=== PATIENT | female | born 1990 | race Caucasian/White ===

== ENCOUNTER → 2016-08-19 | Outpatient (CLI) | payer MEDICAID ==
[~2016-08-19] MED LIST: CALNTAB; GLYB2.5T3 PO; IBUP-232 PO; subutex
--- NOTE | 2016-09-16 17:30 | MH ---
cc: CAN BIRD MD DATE OF ADMISSION: 08/19/2016 1989 REASON FOR CONSULTATION For evaluation at [facility] is 34-6/7 week intrauterine with insulin dependent gestational diabetes, opioid maintenance, Alfred I Psychiatric diagnosis, history of MRSA and today she has a biophysical profile of 6/10. Her sugars have been variable, but overall she has been feeling well. Her Subutex is 2 mg b.i.d. She is on glyburide to 2.5 mg b.i.d. She takes MiraLax p.r.n. She is 3, para 0 with two miscarriages. She has historically been on Cymbalta, trazodone, Lamictal, gabapentin, but all of these have been discontinued during the with good results. She has only taken Zoloft 50 mg and the Subutex 2 mg b.i.d. and occasional Benadryl for insomnia. PAST MEDICAL HISTORY Other than her substance use and psychiatric conditions, she has no chronic or systemic illnesses. SOCIAL HISTORY She is currently smoking tobacco but tried to quit. She is not drinking or using illicit drugs. PAST SURGICAL HISTORY She had a rhinoplasty and she had an abscess on her stomach drained in 2009. FAMILY HISTORY Noncontributory REVIEW OF SYSTEMS Reveals a lack of contractions, leaking, bleeding and she has good movement. Her blood type is B+ hemoglobin is 13.9. Her Pap smear was normal. She was treated for trach. She is immune to chickenpox but not [place] measles. Cultures were all negative. TSH is normal. She has a very low vitamin D. Her 1-hour sugar test was 162 and her 3-hour sugar test was 79, 187, 213 and 160. She was started on glyburide and started on Accu-Cheks just this week. Her hemoglobin was 12. Today the biophysical profile showed ANT of 11.7 and Dopplers at the upper level of normal. is vertex. The placenta is anterior. She has good movement, tone and fluids volume and no breathing motions and her NST was flat. She is therefore going to the hospital for further evaluation and possible delivery. PHYSICAL EXAMINATION GENERAL: She is otherwise a well-developed, well-nourished female. VITAL SIGNS: Weight is 148, blood pressure is 100/62. Urine shows trace protein. LUNGS: Clear to auscultation. HEART: Rate and rhythm are regular. PELVIC: Fundus is 35 cm, cervix was not checked. She has no CVA tenderness. EXTREMITIES: No significant pedal edema OR hyperreflexia. She denies nausea, vomiting, headache blurred vision or right upper quadrant tenderness. IMPRESSION Class A2 diabetic with poorly controlled sugars, opioid initially with Subutex, history of depression, major depressive disorder, possible bipolar disorder, on no medications at this time. PLAN Evaluate more thoroughly in OB ED and determine if continued observation or delivery as indicated. MD MARIAH Emery/SA /4:58 PM /5:07 PM
== END ==
LOC: CDED 14:39
PROVIDERS: ATTEND Obstetrics & Gynecology
DX: O24.419 Gestational diabetes mellitus in pregnancy, unspecified control (principal)
CPT/HCPCS: 97802

== ENCOUNTER 2016-09-16 19:26 | Observation (INO) | payer MEDICAID ==
[~2016-09-16] VITALS: Ht 160 cm; Wt 67.1 kg
[2016-09-16] MEDS ORDERED: SODIUM CHLORIDE 0.9% FLUSH 5 ML FLUSH IVF PRN (20:00)
[2016-09-16] MEDS ORDERED: ZOLPIDEM TARTRATE 5 MG TAB PO PRN (20:00)
[2016-09-16] MEDS ORDERED: ONDANSETRON ODT 4 MG TAB PO PRN (20:00)
[2016-09-16] MEDS ORDERED: ACETAMINOPHEN 325 MG TAB PO PRN (20:00)
--- NOTE | 2016-09-16 20:13 | PD.OB.ANTE ---
Subjective Interval History arrived at hospital from office. was unable to fill her buprenorphine script tonight because it is one day early while BPP was 6/10 in office, current strip is reactive with good BTBV starting 2200 carb consistent diet will keep 24 hours and obtain diabetic counseling, prolonged strip and 24 hour urine. Objective Physical Exam GENERAL: Well-nourished, well-developed patient. CARDIOVASCULAR: Regular rate and rhythm without murmurs, gallops, or rubs. RESPIRATORY: Breath sounds equal bilaterally. No accessory muscle use. fundus consistent with dates EXTREMITIES: No cyanosis or edema, non-tender, without signs of DVT. Elli Hoffman MD Sep 16, 2016 20:13
[2016-09-16] MEDS: SODIUM CHLORIDE 0.9% FLUSH 5 ML FLUSH IVF SCH (21:00)
--- NOTE | 2016-09-16 21:52 | PD.OB.ANTE ---
Subjective Interval History arcenio regularly although not feeling them cervix --1 posterior Objective Physical Exam GENERAL: Well-nourished, well-developed patient. CARDIOVASCULAR: Regular rate and rhythm without murmurs, gallops, or rubs. RESPIRATORY: Breath sounds equal bilaterally. No accessory muscle use. ABDOMEN/GI: Abdomen soft, non-tender. strip reactive regular UCs cervical change EXTREMITIES: No cyanosis or edema, non-tender, without signs of DVT. Assessment and Plan Assessment and Plan begin IV hydration prophylactic antibiotic hold steroids due to uncontrolled diabetes Elli Hoffman MD Sep 16, 2016 21:52
[2016-09-16 22:03] LABS: AUTOMATED NEUTROPHIL # 7.2 TH/MM3 (1.8-7.7); BASOPHIL % 0.3 % (0.0-2.0); EOSINOPHIL # 0.1 TH/MM3 (0-0.4); EOSINOPHIL % 1.2 % (0.0-4.0); HEMATOCRIT 36.8 % (35.0-46.0); HEMO FLAGS DIFF FINAL; LYMPH % 15.8 % (9.0-44.0); LYMPHOCYTE # 1.4 TH/MM3 (1.0-4.8); MEAN CELL VOLUME 84.7 FL (80.0-100.0); MEAN CORPUSCULAR HEMOGLOBIN 27.8 PG (27.0-34.0); MEAN CORPUSCULAR HGB CONC 32.9 % (32.0-36.0); MONO % 3.5 % (0.0-8.0); NEUT % 79.2 % (16.0-70.0); PLATELET COUNT 313 TH/MM3 (150-450); RED BLOOD COUNT 4.35 MIL/MM3 (4.00-5.30)
[2016-09-16 22:09] LABS: AMPHETAMINE, URINE NEG (NEG); BARBITURATES, URINE NEG (NEG); COCAINE, URINE NEG (NEG)
[2016-09-16 22:14] LABS: BACTERIA, URINE OCC /hpf; BLOOD, URINE NEG (NEG); COMMENT (UR) CULTURE INDICATED; CULTURE IF INDICATED CULTURE INDICATED; GLUCOSE,URINE NEG (NEG); KETONE, URINE 10 mg/dL (NEG); MUCUS URINE FEW /lpf (OCC); NITRITE,URINE NEG (NEG); PH, URINE 6.5 (5.0-8.5); SQUAMOUS EPITHELIAL CELL URINE 44 /hpf (0-5); URINE COLOR YELLOW (YELLW/STRAW)
[2016-09-16 22:30] LABS: HEMOGLOBIN A1a 1.1 %; HEMOGLOBIN A1b 1.4 %; HEMOGLOBIN Ao 86.4 %; HEMOGLOBIN LA1C 1.8 %; HEMOGLOBIN P3 3.4 %
[2016-09-16] MEDS: LACTATED RINGER'S 1000 ML INJ 1,000 ML IV SCH (22:30)
[2016-09-16 22:34] LABS: ALKALINE PHOSPHATASE 144 U/L (45-117); ALT (GPT) 63 U/L (10-53); ANION GAP 9 MEQ/L (5-15); AST (GOT) 43 U/L (15-37); BICARBONATE 25.9 MEQ/L (21.0-32.0); BLOOD UREA NITROGEN 7 MG/DL (7-18); CHLORIDE 103 MEQ/L (98-107); GLOMERULAR FILTRATION RATE 85 ML/MIN (>89); INDIRECT BILIRUBIN 0.2 MG/DL (0.0-0.8); POTASSIUM 3.3 MEQ/L (3.5-5.1); SODIUM (NA) 138 MEQ/L (136-145); TOTAL BILIRUBIN ADULT 0.4 MG/DL (0.2-1.0); URIC ACID 3.5 MG/DL (2.6-6.0)
[2016-09-17] MEDS: LACTATED RINGER'S 1000 ML INJ 1,000 ML IV SCH (01:00)
[2016-09-17] MEDS: NIFEdipine 10 MG CAP PO SCH ×2 (05:59)
[2016-09-17] MEDS ORDERED: CALNTAB (06:15)
[2016-09-17] MEDS ORDERED: subutex (06:15)
[2016-09-17 07:36] VITALS: RESP 16; TEMP 97.9
[2016-09-17 07:37] VITALS: BP 106/67; PULSE 66
[2016-09-17] MEDS ORDERED: glyBURIDE 2.5 MG TAB PO SCH (08:00)
[2016-09-17] MEDS: SODIUM CHLORIDE 0.9% FLUSH 5 ML FLUSH IVF SCH (08:35)
[2016-09-17] MEDS ORDERED: DOCUSATE SODIUM 100 MG CAP PO SCH (09:00)
--- NOTE | 2016-09-17 09:35 | PD.OB.ANTE ---
Subjective Interval History Doing well, no c/o, FBS 95 ,tolerating oral glybruride Objective Vital Signs Vital Signs Date Time Temp Pulse Resp B/P Pulse Ox O2 Delivery O2 Flow Rate FiO2 09/17/16 07:37 66 106/67 09/17/16 07:36 97.9 16 Lab & Micro Results Test 09/16/16 09/16/16 09/16/16 20:30 21:10 21:38 Urine Color YELLOW Urine Turbidity CLOUDY Urine pH 6.5 Urine Specific [place] 1.023 Urine Protein 30 mg/dL Urine Glucose (UA) NEG mg/dL Urine Ketones 10 mg/dL Urine Occult Blood NEG Urine Nitrite NEG Urine Bilirubin NEG Urine Urobilinogen 2.0 MG/DL Urine Leukocyte Esterase LARGE Urine RBC 5 /hpf Urine WBC 25 /hpf Urine Squamous Epithelial 44 /hpf Cells Urine Bacteria OCC /hpf Urine Mucus FEW /lpf Microscopic Urinalysis Comment CULTURE INDICATED Urine Opiates Screen NEG Urine Barbiturates Screen NEG Urine Amphetamines Screen NEG Urine Benzodiazepines Screen NEG Urine Cocaine Screen NEG Urine Cannabinoids Screen NEG White Blood Count 9.0 TH/MM3 Red Blood Count 4.35 MIL/MM3 Hemoglobin 12.1 GM/DL Hematocrit 36.8 % Mean Corpuscular Volume 84.7 FL Mean Corpuscular Hemoglobin 27.8 PG Mean Corpuscular Hemoglobin 32.9 % Concent Red Cell Distribution Width 14.0 % Platelet Count 313 TH/MM3 Mean Platelet Volume 8.0 FL Neutrophils (%) (Auto) 79.2 % Lymphocytes (%) (Auto) 15.8 % Monocytes (%) (Auto) 3.5 % Eosinophils (%) (Auto) 1.2 % Basophils (%) (Auto) 0.3 % Neutrophils # (Auto) 7.2 TH/MM3 Lymphocytes # (Auto) 1.4 TH/MM3 Monocytes # (Auto) 0.3 TH/MM3 Eosinophils # (Auto) 0.1 TH/MM3 Basophils # (Auto) 0.0 TH/MM3 CBC Comment DIFF FINAL Differential Comment Sodium Level 138 MEQ/L Potassium Level 3.3 MEQ/L Chloride Level 103 MEQ/L Carbon Dioxide Level 25.9 MEQ/L Anion Gap 9 MEQ/L Blood Urea Nitrogen 7 MG/DL Creatinine 0.81 MG/DL Estimat Glomerular Filtration 85 ML/MIN Rate Random Glucose 111 MG/DL Hemoglobin A1c 5.4 % Uric Acid 3.5 MG/DL Calcium Level 8.8 MG/DL Total Bilirubin 0.4 MG/DL Direct Bilirubin 0.2 MG/DL Indirect Bilirubin 0.2 MG/DL Aspartate Amino Transf 43 U/L (AST/SGOT) Alanine Aminotransferase 63 U/L (ALT/SGPT) Alkaline Phosphatase 144 U/L Total Protein 6.5 GM/DL Albumin 2.3 GM/DL Date/Time Procedure Status Source Growth 09/16/16 20:30 Urine Culture Received Urine Clean Catch Pending Physical Exam GENERAL: Well-nourished, well-developed patient. CARDIOVASCULAR: Regular rate and rhythm without murmurs, gallops, or rubs. RESPIRATORY: Breath sounds equal bilaterally. No accessory muscle use. ABDOMEN/GI: Abdomen soft, non-tender. Fundus: [-] GENITOURINARY: External Genitalia: intact and normal in appearance Cervix: [-] Dilatation: [-] Effacement: [-] Station: [-] Presentation: [-] Membranes: [-] Uterine Contractions: [-] FHT's: Category: [-] Baseline: [-] Reactive: [-] Variability: [-] Decels: [-] EXTREMITIES: No cyanosis or edema, non-tender, without signs of DVT. Assessment and Plan Assessment and Plan HD#1; 34 5/7 week, GDM, new glyburide start, STABLE ,plan discharge. PTL precautions, rto next thu. for BPP Bruno Shook MD Sep 17, 2016 09:35
[2016-09-17] MEDS ORDERED: GLYB2.5T3 PO (09:37)
--- NOTE | 2016-09-17 09:38 | HHI.DS ---
Admission Date Sep 16, 2016 at 19:26 Discharge Date: Sep 17, 2016 Admitting Diagnosis Diagnosis: (1) Gestational diabetes (2) 35 weeks gestation of (3) Buprenorphine maintenance treatment affecting in third trimester (4) heart rate non-reassuring affecting management of mother Pt Condition on Discharge: Good Discharge Disposition: Discharge Home Discharge Instructions Diet Instructions: Calorie Counting Diet Activities You Can Perform: Pelvic Rest Activities to Avoid: Strenuous Activity Bruno Shook MD Sep 17, 2016 09:38
[2016-09-17 16:16] LABS: MRSA PCR NEGATIVE (NEGATIVE); STAPH AUREUS PCR NEGATIVE (NEGATIVE)
[2016-09-25 10:04] LABS: BATH SALTS (MDPV) UR NEG (NEG); ECSTASY (MDMA) UR NEG (NEG); HEROIN (6-ACETYLMORPHINE) UR NEG (NEG); K2 SPICE UR NEG (NEG); OBMETHADONE UR NEG (NEG); OXYCODONE (PERCODAN) NEG (NEG); PHENCYCLIDINE URINE NEG (NEG)
== END 2016-09-17 10:10 | disposition home or self-care (01) ==
LOC: H2EA 19:26
PROVIDERS: ADMIT Obstetrics & Gynecology; ATTEND Obstetrics & Gynecology
DX: O24.419 Gestational diabetes mellitus in pregnancy, unspecified control (principal); Z3A.35 35 weeks gestation of pregnancy
CPT/HCPCS: 80048; 80076; 80307; 81001; 82948; 83036; 84550; 85025; 87086; 87640; 87641; G0378; G0481; J0690; J7120

== ENCOUNTER 2016-10-05 04:17 | Inpatient (IN) | payer MEDICAID ==
[2016-10-05] VITALS (88 sets, daily range): BP systolic 81–134; BP diastolic 45–93; PULSE 59–104; RESP 16–18; TEMP 97.9–98.5
[~2016-10-05 04:17] MED LIST changes: -IBUP-232 PO
--- NOTE | 2016-10-05 05:52 | PD ---
HPI Chief Complaint Contraction pain Date Seen: Oct 05, 2016 Travel History International Travel<30 Days: No Contact w/Intl Traveler<30Days: No Known Affected Area: No History of Present Illness HPI This patient is a 25-year-old white female A2 presents complaining of contraction pain. Denies bleeding or rupture the membranes baby is active. She began arcenio about 8 PM on 10/04 and contractions are more regular and more painful since and that was proximally 10 hours ago. She is patient of Dr. Hoffman'aries who is on Subutex her chronic history of opioid abuse. Her baby's heart rate tracing is reactive and she is arcenio every 2-3 minutes Para: 0 : 3 History Past Medical History Narrative Medical Gestational diabetes mellitus on glyburide Obstetric History Obstetric History 2 ABs Social History Alcohol Use: Yes Tobacco Use: Yes Substance Abuse: Yes Allergies-Medications (Allergen,Severity, Reaction): Coded Allergies: No Known Allergies (Unverified , 09/17/16) Home Meds Active Scripts Glyburide 2.5 Mg Tab2.5 Mg PO BID@ #30 TAB Ref 2 Prov:Bruno Shook MD 09/17/16 Reported Medications [subutex] No Conflict Check2 Mg BID 09/17/16 Vitamin (Calna)1 Tab Tab Daily 09/17/16 Review of Systems General / Constitutional: No: Fever, Weight Gain, Chills, Other Eyes: No: Diploplia, Blurred Vision, Visual changes, Pain, Photophobia HENT: No: Headaches, Vertigo, Lightheadedness Cardiovascular: No: Irregular Rhythm, Chest Pain or Discomfort, Palpitations, Tachycardia, Syncope, Varicosities, Edema, Cyanosis Respiratory: No: Cough, Short of Breath, Other Gastrointestinal: Abdominal Pain, No: Nausea, Vomiting, Diarrhea Genitourinary: No: Decreased Urinary Output, Oliguria Musculoskeletal: No: Limited ROM, Weakness, Cramping, Edema, Pain Skin: No Rash, No Itching, No Dryness, No Lumps, No Change in Pigmentation, No Change in Nails, No Alopecia, No Lesions Neurologic: No: Weakness, Dizziness, Syncope, Focal Abnormalities, Coordination Problem, Headache, Slurred Speech, Seizures Psychiatric: No: Depression, Suicidal Ideations, Homicidal Ideation Endocrine: No: Heat Intolerance, Cold Intolerance, Polydipsia, Polyuria, Other Physical Exam Narrative GENERAL: Well-nourished, well-developed patient. SKIN: Warm and dry. HEAD: Normocephalic and atraumatic. EYES: No scleral icterus. No injection or drainage. ENT: No nasal drainage noted. Mucous membranes pink. Airway patent. NECK: Supple, trachea midline. No JVD. CARDIOVASCULAR: Regular rate and rhythm without murmurs, gallops, or rubs. RESPIRATORY: Breath sounds equal bilaterally. No accessory muscle use. BREASTS: Bilateral exam showed no masses , no retractions, no nipple discharge. ABDOMEN/GI: Abdomen soft, non-tender, bowel sounds present, no rebound, no guarding Gravid to [-37] weeks size Fundal Height: [-37] GENITOURINARY: External Genitalia: intact and normal in appearance BUS glands: [-] Cervix: Dilatation: [3-] Effacement: [80-] Station: [-3] Presentation: [vtx-] Membranes: [intact ] Uterine Contractions: [-q 2-3 min] FHT's: Category: [1-] Baseline: [-144] Reactive: [yes-] Variability: [mod-] Decels: [none-] EXTREMITIES: No cyanosis or edema. BACK: Nontender without obvious deformity. No CVA tenderness. NEUROLOGICAL: Awake and alert. Motor and sensory grossly within normal limits. Five out of 5 muscle strength in all muscle groups. Normal speech. [facility] Medical Record Reviewed: No Interpretation(s) This patient is 25-year-old white female A2 at 37 weeks presents combining of contractions. She denies bleeding or rupture the membranes baby is active heart rate tracing is reactive she is arcenio every 2-[address] Hoffman is her doctor. She is a patient with history of opioid drug use and is on Subutex. Plan Plan to outpatient walk for an hour and recheck if that will move things along a little more active phase of labor but I believe she'll stay here in the hospital , I doubt she will be able to go home today Diagnosis Diagnosis: Primary Impression: Uterine contractions during Additional Impression: Drug abuse Musa Ríos II, MD Oct 05, 2016 05:52
[2016-10-05] MEDS ORDERED: LACTATED RINGER'S 1000 ML INJ 1,000 ML IV PRN (07:35)
--- NOTE | 2016-10-05 07:40 | HHI.HP ---
History & Physical H&P Pt is a 37 wk IUP who is CTXing q 2 min , IBOW , reactive NST , she walked for 1 hr and on recheck she is 4-5/80/0 /vtx Plan to admit for labor management and anticipate vaginal delivery Musa Ríos II, MD Oct 05, 2016 07:40
[2016-10-05] MEDS ORDERED: LIDOCAINE HCL 1% 50 ML VIAL INFIL PRN (07:45)
[2016-10-05] MEDS ORDERED: MINERAL OIL 10 ML VIAL TOPICAL PRN (07:45)
[2016-10-05] MEDS ORDERED: OXYTOCIN 30 UNITS-500ML PREMIX 500 ML IV ONE (07:45)
[2016-10-05] MEDS ORDERED: CITRIC ACID-SODIUM CITRATE LIQ 30 ML UDC PO SCH (07:45)
[2016-10-05] MEDS ORDERED: SODIUM CHLORID 0.9% 500 ML INJ 500 ML IV PRN (07:45)
[2016-10-05] MEDS ORDERED: LIDOCAINE HCL 1% 50 ML VIAL I-DERMAL PRN (07:45)
[2016-10-05] MEDS ORDERED: SODIUM CHLOR 0.9% 1000 ML INJ 1,000 ML IV PRN (07:55)
[2016-10-05] MEDS: LACTATED RINGER'S 1000 ML INJ 1,000 ML IV SCH ×2 (08:04→09:27)
[2016-10-05 08:06] LABS: AUTOMATED NEUTROPHIL # 8.7 TH/MM3 (1.8-7.7); BASOPHIL % 0.4 % (0.0-2.0); EOSINOPHIL # 0.1 TH/MM3 (0-0.4); EOSINOPHIL % 0.6 % (0.0-4.0); HEMATOCRIT 34.6 % (35.0-46.0); HEMO FLAGS DIFF FINAL; LYMPH % 15.4 % (9.0-44.0); LYMPHOCYTE # 1.7 TH/MM3 (1.0-4.8); MEAN CELL VOLUME 83.1 FL (80.0-100.0); MEAN CORPUSCULAR HEMOGLOBIN 27.9 PG (27.0-34.0); MEAN CORPUSCULAR HGB CONC 33.5 % (32.0-36.0); MONO % 7.1 % (0.0-8.0); NEUT % 76.5 % (16.0-70.0); PLATELET COUNT 329 TH/MM3 (150-450); RED BLOOD COUNT 4.16 MIL/MM3 (4.00-5.30); RED CELL DISTRIBUTION WIDTH 14.7 % (11.6-17.2); WHITE BLOOD COUNT 11.3 TH/MM3 (4.0-11.0)
[2016-10-05 08:13] LABS: BLOOD, URINE NEG (NEG); GLUCOSE,URINE NEG (NEG); KETONE, URINE 10 mg/dL (NEG); MUCUS URINE FEW /lpf (OCC); NITRITE,URINE NEG (NEG); PH, URINE 7.5 (5.0-8.5); RENAL EPITHELIAL CELLS <1 /hpf; SQUAMOUS EPITHELIAL CELL URINE 2 /hpf (0-5); URINE COLOR YELLOW (YELLW/STRAW)
[2016-10-05 08:14] LABS: COMMENT (UR) CULT NOT INDICATED; CULTURE IF INDICATED CULT NOT INDICATED
[2016-10-05] MEDS ORDERED: fentaNYL 2MCG-BUPIV 0.125% INJ 100 ML ONE (08:33)
[2016-10-05] MEDS ORDERED: ePHEDrine/NS 25 MG/5 ML SYR ONE (08:51)
[2016-10-05 09:13] LABS: AMPHETAMINE, URINE NEG (NEG); BARBITURATES, URINE NEG (NEG); COCAINE, URINE NEG (NEG)
--- NOTE | 2016-10-05 10:57 | PD.LABORPN ---
Subjective Subjective Patient is comfortable with RADHA now Objective Vital Signs Vital Signs Date Time Temp Pulse Resp B/P Pulse Ox O2 Delivery O2 Flow Rate FiO2 10/05/16 10:35 75 105/74 10/05/16 10:22 18 10/05/16 09:26 98.5 Objective Pelvic Exam: Cervix: mid Dilatation: 4-5 Effacement: 80 Station: 0 Presentation: vtx palpated Membranes:AROM clear fluid Uterine Contractions: q2-5 min FHT's: Category: I Baseline: 130 Reactive: acceleration to 160 Variability: mod Decels: occasional variable Assessment/Plan Assessment and Plan 37w4d presented in active labor comfortable with epidural requested AROM by Dr. Shook AROM clear FHT reassuring Karen Cross MD Oct 05, 2016 10:57
--- NOTE | 2016-10-05 15:07 | PD.OB.DELI ---
Anesthesia: Epidural Episiotomy: None Vaginal Delivery: Normal Presentation: Occiput anterior Nuchal Cord: None Delayed cord clamping (45 sec): Yes Infant: Male One Minute : 9 Five Minute : 9 Infant Care: Suctioned, Spontaneous crying, Responded to stimulation Placenta: Spontaneous delivery, Intact, 3 vessel cord, Cord pH Laceration: No lacerations Additional Information EBL <250 cc Bruno Shook MD Oct 05, 2016 15:07
[2016-10-05] MEDS ORDERED: ALUMINUM/MAGNESIUM/SIMETH 30 ML CUP PO PRN (15:15)
[2016-10-05] MEDS ORDERED: SODIUM CHLORIDE 0.9% FLUSH 5 ML FLUSH IV PRN (15:15)
[2016-10-05] MEDS ORDERED: OXYTOCIN 10 UNIT/ML AMP XX ONE (15:15)
[2016-10-05] MEDS ORDERED: ONDANSETRON ODT 4 MG TAB PO PRN (15:15)
[2016-10-05] MEDS ORDERED: BENZOCAINE 20% TOPICAL SPRAY 60 ML CAN TOPICAL PRN (15:15)
[2016-10-05] MEDS ORDERED: ZOLPIDEM TARTRATE 5 MG TAB PO PRN (15:15)
[2016-10-05] MEDS ORDERED: WITCH HAZEL 50%/GLYCERIN 12.5% 40 PAD JAR TOPICAL PRN (15:15)
[2016-10-05] MEDS ORDERED: KETOROLAC TROMETHAMINE 30 MG/ML (IVP) VIAL IV PUSH PRN (15:15)
[2016-10-05 15:18] LABS: BLOOD GAS BASE EXCESS -2.5 mmol/L (-2-2); BLOOD GAS O2 HGB SATURATION 51 % (90-100); CORD BLOOD GAS HCO3 23 mmol/L (21-29); CORD BLOOD GAS PCO2 51 mmHG (34-78); CORD BLOOD GAS PH 7.28 (7.14-7.42); CORD BLOOD GAS PO2 26 mmHG (3.0-40.0); DRAW SITE CORD BLOOD; STAT NO
[2016-10-05] MEDS ORDERED: DIPHTH/TETANUS/ACEL PERTUSSIS (BOOSTER) 0.5 ML VIAL/PFS IM ONE (16:00)
[2016-10-05] MEDS ORDERED: MEASLES, MUMPS, RUBELLA VACCINE 0.5 ML VIAL SQ ONE (16:00)
[2016-10-05] MEDS ORDERED: NO SYSTEM NARCOTICS XX PRN (16:45)
[2016-10-05] MEDS ORDERED: ePHEDrine/NS 25 MG/5 ML SYR IV PRN (16:45)
[2016-10-05] MEDS ORDERED: DO NOT ADMINISTER ANTICOAGULANTS XX PRN (16:45)
[2016-10-05] MEDS ORDERED: fentaNYL 2MCG-BUPIV 0.125% 100 ML EPIDURAL SCH (16:45)
[2016-10-05] MEDS ORDERED: DOCUSATE SODIUM 50 MG/SENNA 8.6 MG TAB PO PRN (21:00)
[2016-10-05] MEDS ORDERED: SODIUM CHLORIDE 0.9% FLUSH 5 ML FLUSH IV SCH (21:00)
[2016-10-06] MEDS: IBUPROFEN 600 MG TAB PO PRN ×2 (08:24→14:26)
[2016-10-06] MEDS: ACETAMINOPHEN 325 MG TAB PO PRN ×2 (08:25→14:27)
--- NOTE | 2016-10-06 08:47 | HHI.OB ---
Subjective Post Day: 1 Objective Vitals/I&O Vital Signs Date Time Temp Pulse Resp B/P Pulse Ox O2 Delivery O2 Flow Rate FiO2 10/05/16 19:11 75 16 111/71 10/05/16 17:19 18 10/05/16 17:15 79 104/59 10/05/16 17:00 86 103/65 10/05/16 16:50 78 10/05/16 16:45 73 109/69 10/05/16 16:40 73 10/05/16 16:30 79 114/73 10/05/16 16:25 70 10/05/16 16:24 16 10/05/16 16:20 72 10/05/16 16:15 77 111/68 10/05/16 16:05 68 10/05/16 16:00 77 109/77 10/05/16 15:55 81 10/05/16 15:50 72 10/05/16 15:46 71 101/74 10/05/16 15:45 74 10/05/16 15:40 71 10/05/16 15:38 16 10/05/16 15:35 74 10/05/16 15:30 111/67 10/05/16 15:30 72 10/05/16 15:25 73 10/05/16 15:21 97.9 18 10/05/16 15:16 71 103/67 10/05/16 15:10 18 10/05/16 15:02 71 10/05/16 15:02 96/66 10/05/16 15:01 96/66 10/05/16 15:01 68 10/05/16 15:00 87 10/05/16 15:00 81/61 10/05/16 14:45 73 114/72 10/05/16 14:30 59 116/77 10/05/16 14:15 16 10/05/16 14:15 64 100/62 10/05/16 14:01 67 101/61 10/05/16 14:00 66 99/62 10/05/16 13:30 75 107/67 10/05/16 13:30 16 10/05/16 13:25 66 107/63 10/05/16 13:22 98.3 10/05/16 13:21 73 94/57 10/05/16 13:15 68 95/46 2//17 13:00 71 109/76 219/17 12:49 69 102/62 2/19/17 12:48 16 10/05/17 12:42 77 106/65 2/17 12:30 71 99/66 2//17 12:15 77 105/62 2/17 12:00 77 18 106/73 2/17 11:45 77 104/68 2/17 11:40 80 105/73 2/17 11:30 82 100/58 2//17 11:28 85 93/45 2/17 11:25 73 90/70 2/17 11:21 66 97/61 2/17 11:17 66 90/48 2/17 11:16 78 81/56 2/17 11:15 77 87/51 2/17 11:00 98.2 97 18 106/89 2/17 10:45 77 106/80 2/17 10:35 75 105/74 2/17 10:33 74 94/65 2/17 10:31 82 89/61 2//17 10:22 18 10/05/17 10:15 82 97/64 2/17 10:00 80 112/66 10/05/17 09:59 77 103/69 10/05/17 09:55 84 17 09:55 104/59 10/05/17 09:50 74 10/05/17 09:50 101/57 2/17 09:47 93 95/60 2/17 09:46 85 90/59 2/17 09:45 93 10/05/17 09:42 90 134/91 2/17 09:41 104 123/93 2/17 09:40 93 10/05/17 09:35 73 107/63 10/05/17 09:30 70 122/67 2/17 09:26 98.5 2/17 09:25 69 111/70 2/17 09:24 18 10/05/17 09:20 74 102/70 2/17 09:15 73 111/70 2/17 09:10 78 108/69 2/17 09:08 73 108/73 10/05/16 09:05 77 10/05/16 09:04 76 110/75 10/05/16 09:00 83 10/05/16 08:57 86 125/83 Objective Remarks GENERAL: Well-nourished, well-developed patient. CARDIOVASCULAR: Regular rate and rhythm without murmurs, gallops, or rubs. RESPIRATORY: Breath sounds equal bilaterally. No accessory muscle use. ABDOMEN/GI: Abdomen soft, non-tender. Fundus: Firm, non-tender at umbilicus. GENITOURINARY: Light to moderate bleeding. EXTREMITIES: No cyanosis or edema, non-tender, without signs of DVT. Medications and IVs Current Medications Medications (Trade) Dose Ordered Sig/Crescencio Route Start Time Stop Time Status Last Admin Lactated Ringer's 1,000 ml @ 125 mls/hr Q8H IV 10/05/16 07:35 10/05/16 09:27 Lactated Ringer's 1,000 ml @ 3,000 mls/hr Q20M PRN IV 10/05/16 07:35 Sodium Chloride 500 ml @ 1,000 mls/hr ONCE PRN IV 10/05/16 07:45 10/10/16 07:44 (NS 1000 ml Inj) 1,000 ml @ 100 mls/hr Q10H PRN IV 10/05/16 07:55 (fentaNYL INJ) 50 mcg Q1H PRN IV PUSH 10/05/16 07:45 (fentaNYL INJ) 100 mcg Q1H PRN IV PUSH 10/05/16 07:45 (Muri-Lube Oil) 10 ml UNSCH PRN TOPICAL 10/05/16 07:45 (NS Flush) 2 ml BID IV 10/05/16 21:00 (NS Flush) 2 ml UNSCH PRN IV 10/05/16 15:15 (Tylenol) 650 mg Q4H PRN PO 10/05/16 15:15 10/06/16 08:25 (Motrin) 600 mg Q6H PRN PO 10/05/16 15:15 10/06/16 08:24 (Americaine 20% Top Spr) 1 spray Q4H PRN TOPICAL 10/05/16 15:15 10/05/16 20:23 (Tucks Pads) 1 applic QID PRN TOPICAL 10/05/16 15:15 10/05/16 20:23 (Polly-Colace) 2 tab Q12HR PRN PO 10/05/16 21:00 (Ambien) 5 mg HS PRN PO 10/05/16 15:15 (Mag-Al Plus Susp Liq) 15 ml Q8H PRN PO 10/05/16 15:15 (Zofran Odt) 4 mg Q6H PRN PO 10/05/16 15:15 (Toradol Inj) 30 mg Q6HR PRN IV PUSH 10/05/16 15:15 Miscellaneous Information No systemic narcotics to be given except... UNSCH PRN XX 10/05/16 16:45 10/06/16 16:44 Miscellaneous Information DO NOT ADMINISTER ANY ANTICOAGUL... UNSCH PRN XX 10/05/16 16:45 10/06/16 16:44 (fentaNYL 2MCG-BUPIV 0.125% INJ) 100 ml @ 0 mls/hr TITRATE EPIDURAL 10/05/16 16:45 (ePHEDrine/NS 25 MG/5 ML SYR) 10 mg UNSCH PRN IV 10/05/16 16:45 10/06/16 16:44 Assessment/Plan Assessment and Plan doing well PPD 1 Can nurse on low dose subutex needs physician practice consultant plan for discharge in am Elli Hoffman MD Oct 06, 2016 08:47
[2016-10-07] MEDS: IBUPROFEN 600 MG TAB PO PRN ×2 (00:24→11:43)
[2016-10-07] MEDS: ACETAMINOPHEN 325 MG TAB PO PRN ×2 (00:24→11:43)
[2016-10-07 01:24] VITALS: RESP 16
--- NOTE | 2016-10-07 08:22 | HHI.OB ---
Subjective Post Day: 2 Remarks doing well, min lochia. pain well controlled Objective Vitals/I&O Vital Signs Date Time Temp Pulse Resp B/P Pulse Ox O2 Delivery O2 Flow Rate FiO2 10/07/16 01:24 16 10/07/16 01:24 16 Objective Remarks GENERAL: Well-nourished, well-developed patient. CARDIOVASCULAR: Regular rate and rhythm without murmurs, gallops, or rubs. RESPIRATORY: Breath sounds equal bilaterally. No accessory muscle use. ABDOMEN/GI: Abdomen soft, non-tender. Fundus: Firm, non-tender at umbilicus-2cm. GENITOURINARY: Light to moderate bleeding. EXTREMITIES: No cyanosis or edema, non-tender, without signs of DVT. Medications and IVs Current Medications Medications (Trade) Dose Ordered Sig/Crescencio Route Start Time Stop Time Status Last Admin Lactated Ringer's 1,000 ml @ 125 mls/hr Q8H IV 10/05/16 07:35 10/05/16 09:27 Lactated Ringer's 1,000 ml @ 3,000 mls/hr Q20M PRN IV 10/05/16 07:35 Sodium Chloride 500 ml @ 1,000 mls/hr ONCE PRN IV 10/05/16 07:45 10/10/16 07:44 (NS 1000 ml Inj) 1,000 ml @ 100 mls/hr Q10H PRN IV 10/05/16 07:55 (fentaNYL INJ) 50 mcg Q1H PRN IV PUSH 10/05/16 07:45 (fentaNYL INJ) 100 mcg Q1H PRN IV PUSH 10/05/16 07:45 (Muri-Lube Oil) 10 ml UNSCH PRN TOPICAL 10/05/16 07:45 (NS Flush) 2 ml BID IV 10/05/16 21:00 (NS Flush) 2 ml UNSCH PRN IV 10/05/16 15:15 (Tylenol) 650 mg Q4H PRN PO 10/05/16 15:15 10/07/16 00:24 (Motrin) 600 mg Q6H PRN PO 10/05/16 15:15 10/07/16 00:24 (Americaine 20% Top Spr) 1 spray Q4H PRN TOPICAL 10/05/16 15:15 10/05/16 20:23 (Tucks Pads) 1 applic QID PRN TOPICAL 10/05/16 15:15 10/05/16 20:23 (Polly-Colace) 2 tab Q12HR PRN PO 10/05/16 21:00 (Ambien) 5 mg HS PRN PO 10/05/16 15:15 (Mag-Al Plus Susp Liq) 15 ml Q8H PRN PO 10/05/16 15:15 (Zofran Odt) 4 mg Q6H PRN PO 10/05/16 15:15 Ketorolac Tromethamine 30 mg 30 mg Q6HR PRN IV PUSH 10/05/16 15:15 (fentaNYL 2MCG-BUPIV 0.125% INJ) 100 ml @ 0 mls/hr TITRATE EPIDURAL 10/05/16 16:45 Assessment/Plan Assessment and Plan PPD 2 Can nurse on low dose subutex per Dr. Hoffman plan for discharge today Dixie Jackson MD Oct 07, 2016 08:22
[2016-10-07] MEDS ORDERED: IBUP-232 PO (08:55)
--- NOTE | 2016-10-07 08:56 | HHI.DCPOC ---
Discharge Care Plan Diagnosis: (1) (spontaneous vaginal delivery) Your Health Problems Are: Vaginal delivery Report Symptoms to Your Doctor -Temperate above 100.5 degrees -Redness, of incision or excessive or foul smelling drainage -Unusual pain or calf pain -Increased vaginal bleeding -Painful or difficulty urinating -Feelings of extreme sadness or anxiety after 2 weeks Goals to Promote Your Health * To prevent worsening of your condition and complications * To maintain your health at the optimal level Directions to Meet Your Goals Take your medications as prescribed Follow your dietary instruction Follow activity as directed Ensure plenty of rest for recovery Drink fluids for hydration Keep your appointments as scheduled Take your immunizations and boosters as scheduled If your symptoms worsen call your PCP, if no PCP go to Urgent Care Center or Emergency Room Smoking is Dangerous to Your Health. Avoid second hand smoke Call the 24-hour crisis hotline for domestic abuse at Dixie Jackson MD Oct 07, 2016 08:56
[2016-10-09 10:45] LABS: BATH SALTS (MDPV) UR NEG (NEG); ECSTASY (MDMA) UR NEG (NEG); HEROIN (6-ACETYLMORPHINE) UR NEG (NEG); K2 SPICE UR NEG (NEG); OBMETHADONE UR NEG (NEG); OXYCODONE (PERCODAN) NEG (NEG); PHENCYCLIDINE URINE NEG (NEG)
== END 2016-10-07 15:15 | disposition home or self-care (01) | DRG 775 ==
LOC: HOBED 04:17 → H2EA 07:39 → H1EA 19:44
PROVIDERS: ADMIT Obstetrics & Gynecology; ATTEND Obstetrics & Gynecology
PROC: 10E0XZZ Delivery of Products of Conception, External Approach (ICD-10-PCS; principal; 2016-10-05)
PROC: 00HU33Z Insertion of Infusion Device into Spinal Canal, Percutaneous Approach (ICD-10-PCS; 2016-10-05)
PROC: 3E0R3CZ (ICD-10-PCS; 2016-10-05)
DX: O99.334 Smoking (tobacco) complicating childbirth (principal); O24.429 Gestational diabetes mellitus in childbirth, unspecified control; F17.210 Nicotine dependence, cigarettes, uncomplicated; O99.324 Drug use complicating childbirth; Z37.0 Single live birth; F11.90 Opioid use, unspecified, uncomplicated; Z3A.37 37 weeks gestation of pregnancy
CPT/HCPCS: 80307; 81001; 82805; 85025; 86900; 86901; 90715; 99285; G0481; J7120